=== PATIENT | female | born 1960 | race Caucasian/White ===

== ENCOUNTER → 2016-12-11 16:57 | Outpatient (CLI) | payer MEDICARE ==
[2015-07-07 13:02] VITALS: BMI 31.7
[~2016-12-11 16:57] MED LIST: ABILIFY2 MG PO; ATIVAN1 MG PO; BACTRIM DS TABL1 TAB PO; BACTROBAN NASAL1 GM NS; CLIMARA 0.0.075 MG/P TD; COUMADIN5 MG PO; DESERYL100 MG PO; DILAUDID4 MG PO; DURAGESIC1 PATCH .2 TD; ELIQUIS2.5 MG PO; FLUTICASONE PRO16 GM NS; HYDROCODONE-APA1 TAB PO; LIPITOR20 MG PO; LOVAZA1 G PO; NORVASC5 MG PO; OXYCODONE HCL5 MG PO; PAXIL20 MG PO; PERCOCET 10/3251 TA1 PO; PROTONIX40 MG PO; PROVERA 5 MG TAB5 MG PO; RESTORIL15 MG PO; SYNTHROID75 MCG PO; TYLENOL 325 MG325 MG PO; TYLENOL W/CODEI1 TAB PO; VALIUM10 MG PO; VENTOLIN HFA18 GM INH; ZANAFLEX4 MG PO
== END | disposition home or self-care (01) ==
LOC: D.MAMMO 11:30
DX: Z12.31 Encounter for screening mammogram for malignant neoplasm of breast (principal)

== ENCOUNTER 2016-12-21 05:26 | Day surgery (SDC) | payer MEDICARE ==
[2016-12-20 09:44] LABS: HEMATOCRIT 47.8 % (36.0-48.0); HEMOGLOBIN 16.5 g/dL (12-16); MCH 30.6 pg (26.0-34.0); MCHC 34.5 g/dL (31.0-37.0); MCV 88.7 fL (80.0-100.0); MEAN PLATELET VOLUME 10.5 fL (7.4-10.4); RBC 5.39 10x6/uL (4.00-5.40); RDW 13.9 % (11.5-14.5); WBC 10.3 10x3/uL (4.8-10.8)
[~2016-12-21] VITALS: Ht 176.5 cm; Wt 112.5 kg
[2016-12-21 06:41] VITALS: BP 110/66; Ht 176.5 cm; Wt 112.5 kg
[2016-12-21] MEDS ORDERED: HYDROCODONE-APA1 TAB PO (09:02)
--- NOTE | 2016-12-21 09:58 | NUR ---
OPA IN AIRWAY ON ADMIT
--- NOTE | 2016-12-21 10:40 | NUR ---
TO ROOM O2 SAT 89% ON 3LNC UP TO 4 LNC O2 90% PT WAKE AND TALKING WITH FAMILY OXMIERS ON , DRINKING COFFEE
--- NOTE | 2016-12-21 14:14 | NUR ---
1200 DR ALSTON IN ROOM CHECKING ON PT 02 SAT , 02 SAT UP TO 92 RA
--- NOTE | 2016-12-21 14:15 | NUR ---
1150 IV DC WITH CATHER TIP INTACT
--- NOTE | 2016-12-25 13:10 | OP ---
PATIENT NAME: ZAHIDA MILLARD MEDICAL RECORD: [id number] :62 LOCATION:YING ADMISSION DATE: SURGEON: JOSEFINA ACKERMAN MD DATE OF OPERATION: 12/21/2016 PREOPERATIVE DIAGNOSES: Rotator cuff tear of the right shoulder with impingement syndrome and acromioclavicular arthritis. POSTOPERATIVE DIAGNOSES: Rotator cuff tear of the right shoulder with impingement syndrome and acromioclavicular arthritis. PROCEDURES: 1. Arthroscopic rotator cuff repair. 2. Arthroscopic distal clavicle excision done through a separate incision -- 1 cm. 3. Arthroscopic subacromial decompression, acromioplasty and bursectomy. 4. Arthroscopic biceps tendon release -- tenotomy. OPERATIVE SUMMARY IN DETAIL: After obtaining the appropriate preoperative orthopedic surgery consent as well as anesthetic consultation, evaluation and clearance, the patient was brought to the operating room and placed on the operating table in supine position. After general laryngeal mask was administered, the patient was placed in left lateral decubitus position. All pressure points were well padded to include down leg peroneal pad as well as axillary roll. The patient was held firmly to the operating table using the vacuum pack suction system. Right upper extremity and shoulder were then prepped and draped in a routine sterile fashion. The patient's arm was held in the Arthrex traction boom at 30 degrees of forward flexion, 30 degrees of abduction with 10 pounds of traction laterally. Arthroscopy was established in the glenohumeral joint from a posterior portal. Anterior portal was established in the anterior safe interval. Diagnostic arthroscopy revealed the patient had severe biceps tearing, which was greater than 50% as well as the rotator cuff tear. Biceps tendon was tenotomized. Attention was then turned to the rotator cuff tear. A transarthroscopic rotator cuff tear portal was created and the articular aspect of the supraspinatus tendinous footprint was decorticated. Portions of the torn rotator cuff were taken down. The rotator cuff tear was essentially attritional with a very large area of very thin rotator cuff residual with a complete full thickness tear at the distal aspect of the supraspinatus tendon. This was all cleaned back to good bleeding viable tendon. Attention was then turned to the subacromial space. While on the subacromial space, [place] tissue ablation system was utilized to denude the undersurface of the acromion and release the coracoacromial ligament. A 5-0 barrel jaswant was used to perform acromioplasty at the level of acromioclavicular joint. Through a separate anterior portal, distal clavicle was taken down with the 5-0 barrel jaswant under direct arthroscopic visualization. Having completed this, attention was turned to the rotator cuff. Single apex suture was placed in the apex of the rotator cuff tear tied with a FiberTape. These 2 tails were cut. A second suture was then placed more lateral. This was anchored laterally using a 5.5 SwiveLock from Arthrex. Having completed this, arthroscopy portals were closed in routine interrupted fashion using 4-0 Prolene. Sterile dressings were applied. The patient was awakened, taken to recovery room in stable condition. All final needle and sponge counts were correct. TRANSINT:[id number] Voice Confirmation ID: [id number] DOCUMENT ID: [id number] OPERATIVE REPORT [id number] ZAHIDA MILLARD MD, JOSEFINA HURT at 1310 CC: [id number] DICTATION DATE: 12/21/16 0941 REPAIRER WELDING EQUIPMENT: 12/21/16 1010 [facility] 12/21/[address] [facility] [address] [place] [address]
== END 2016-12-21 12:00 | disposition home or self-care (01) ==
LOC: D.OPS 05:26 → D.PAN 08:00 → D.OPS 12:00
PROVIDERS: Anesthesiology
DX: M75.121 Complete rotator cuff tear or rupture of right shoulder, not specified as traumatic (principal); M75.41 Impingement syndrome of right shoulder; M13.811 Other specified arthritis, right shoulder

== ENCOUNTER → 2017-12-12 16:58 | Outpatient (CLI) | payer MEDICARE ==
[2016-12-21 06:41] VITALS: BMI 36.1
[~2017-12-12 16:58] MED LIST changes: +NORVASC2.5 MG PO; -NORVASC5 MG PO
== END | disposition home or self-care (01) ==
LOC: D.MAMMO 09:15
DX: Z12.31 Encounter for screening mammogram for malignant neoplasm of breast (principal)

== ENCOUNTER → 2017-12-21 14:03 | Outpatient (CLI) | payer MEDICARE ==
[2016-12-21 06:41] VITALS: BMI 36.1
== END | disposition home or self-care (01) ==
LOC: D.MRI 10:30
DX: M25.571 Pain in right ankle and joints of right foot (principal)

== ENCOUNTER 2018-02-27 06:24 | Day surgery (SDC) | payer MEDICARE ==
[~2018-02-27] VITALS: Ht 176.5 cm; Wt 83.9 kg
--- NOTE | ~2018-02-27 | OP ---
PATIENT NAME: ZAHIDA MILLARD MEDICAL RECORD: [id number] :62 LOCATION:D.OPS ADMISSION DATE: SURGEON: MURIEL CAMACHO DPM DATE OF OPERATION: 02/27/2018 PREOPERATIVE DIAGNOSES: 1. Right ankle capsulitis with impingement. 2. ATF rupture, right ankle. POSTOPERATIVE DIAGNOSES: 1. Right ankle capsulitis with impingement. 2. ATF rupture, right ankle. PROCEDURES: 1. Right ankle arthroscopy with extensive debridement of capsular and adhesive tissue. 2. Right anterior talofibular ligament repair utilizing a modified Brostrom and internal brace. ANESTHESIA: Preoperative popliteal block per the anesthesia department as well as intraoperative general anesthesia. HEMOSTASIS: Right thigh tourniquet at 350 mmHg. PREOPERATIVE DETAILS: The patient was taken to the OR and placed on the operating table in a supine position. This was followed by induction of general anesthesia. The right extremity was then prepped and draped in usual aseptic technique followed by exsanguination of extremity and inflation of tourniquet. A 15-blade was used to create 2 small stab incisions over the anterior medial and anterior lateral shoulder of the anterior ankle. The incisions were deepened down bluntly through the subcutaneous tissue and the joint capsule of the ankle was punctured. The camera was introduced medially and the synovial shaver laterally. Upon initial inspection, there was noted to be some mild chondromalacia of the anterior distal tibia as well as some hypertrophied capsule. There was also some scarring of the anterior inferior tibiofibular ligament. These areas were debrided with the synovial shaver. The portals were switched with the camera introduced laterally and the synovial shaver medially. Continued debridement of the hypertrophied capsular tissue as well as synovitis and the impinging capsulitis was performed. Once adequate debridement was performed, the synovial shaver and the camera were removed. PROCEDURE #2: ATF repair, right ankle. The incision on the anterior lateral shoulder of the ankle small stab incision was lengthened distally in a hockey J shape incision. The incision was deepened down through subcutaneous tissue to the joint capsule, which was incised along the anterior border of the fibula. This gave adequate visualization to the lateral shoulder of the ankle joint as well as the lateral talar dome. At this time, inversion stress was performed showing that the CF ligament was intact. Therefore, the ATF ligament was repaired with the internal brace and inserted into the talus as well as the distal fibula. Following the internal brace repair, a modified Brostrom repair was performed over the top utilizing a FiberWire and 2-0 Vicryl to augment. This was then followed by closure of the subcutaneous tissue with 4-0 Rapide and closure of the skin with 4-0 Rapide in a subcuticular technique followed by Dermabond. The anterior medial stab incision over the anterior medial ankle was then closed with 4-0 Rapide in a simple interrupted technique. The incisions OPERATIVE REPORT [id number] FREEMANZAHIDA JOHNSON were then sealed with Dermabond. Adaptic, 4 x 4 and conform were then used to dress the wound followed by application of a modified Michael compression dressing. Tourniquet was deflated. POSTOPERATIVE DETAILS: The patient tolerated the procedure well and left the OR with vital signs stable and vascular status at preoperative levels. The patient was transferred to recovery per anesthesia in stable condition. TRANSINT:[id number] Voice Confirmation ID: [id number] DOCUMENT ID: [id number] MURIEL CAMACHO DPM at 1107 CC: [id number] DICTATION DATE: 02/27/18 0949 BOOT AND SHOE LABORER: 02/27/18 1107 [facility] 02/27/18 [place] [address] [place] [address]
[2018-02-27 07:22] VITALS: BP 128/84; Ht 176.5 cm; Wt 83.9 kg
[2018-02-27 07:24] LABS: HEMATOCRIT 46.9 % (36.0-48.0); HEMOGLOBIN 16.1 g/dL (12-16); MCHC 34.3 g/dL (31.0-37.0); MCV 90.2 fL (80.0-100.0); MEAN PLATELET VOLUME 10.7 fL (7.4-10.4); RBC 5.2 10x6/uL (4.00-5.40); RDW 14.8 % (11.5-14.5); WBC 8.4 10x3/uL (4.8-10.8)
== END 2018-02-27 11:20 | disposition home or self-care (01) ==
LOC: D.OPS 06:24 → D.PAN 07:00 → D.OPS 07:55
PROVIDERS: Anesthesiology
DX: S93.491A Sprain of other ligament of right ankle, initial encounter (principal); M77.51 Other enthesopathy of right foot and ankle; F17.200 Nicotine dependence, unspecified, uncomplicated; I10 Essential (primary) hypertension; E03.9 Hypothyroidism, unspecified; K21.9 Gastro-esophageal reflux disease without esophagitis; G47.30 Sleep apnea, unspecified; Z01.812 Encounter for preprocedural laboratory examination

== ENCOUNTER → 2018-06-25 12:37 | Outpatient (CLI) | payer MEDICARE, MEDICAID ==
[2018-02-27 07:22] VITALS: BMI 26.9
== END | disposition home or self-care (01) ==
LOC: D.LABREF 12:37
DX: M25.561 Pain in right knee (principal); Z11.8 Encounter for screening for other infectious and parasitic diseases

== ENCOUNTER 2018-07-17 10:00 | Inpatient (IN) | payer MEDICARE, MEDICAID ==
[~2018-07-17] VITALS: Ht 177.8 cm; Wt 111.8 kg
--- NOTE | ~2018-07-17 | MORECARE ---
CASE MANAGEMENT DISCHARGE SUMMARY PATIENT: ZAHIDA MILLARD UNIT: [id number] ADM DATE: 07/22/18 AGE: 57 : 62 SEX: F ROOM/BED: D.2211 AUTHOR: BASIM KEBEDE PHYSICIAN: REFERRING PHYSICIAN: JOSEFINA ACKERMAN MD DATE OF SERVICE: 07/29/18 Discharge Plan Patient Name: ZAHIDA MILLARD Facility: [facility]:[place] : 1960 Planned Disposition: Home with Home Health Anticipated Discharge Date: Discharge Date: 07/25/2018 Expected LOS: 0 Initial Reviewer: [email or web address] Initial Review Date: 07/22/2018 Generated: 07/29/18 11:12 am Comments DCP- Discharge Planning Updated by [email or web address]: Molly Vargas on 07/25/18 9:[address] Patient Name: ZAHIDA MILLARD Encounter No: [id number] : 1960 Primary Insurance: [employer] MEDICARE ADV Anticipated DC Date: Planned Disposition: Home with Home Health External Planned Provider: : DCP follow-up note: Patient and family in agreement with discharge plan. IMM served and explained. Called Susie at [employer] to let her know of discharge she will get DME out to patient. Notified Felicia at [employer] notified of discharge. No changes to plan. Case management will follow and assist as needed. Molly Vargas DCP- Discharge Planning Updated by [email or web address]: Molly Vargas on 07/23/18 12:[address] Patient Name: ZAHIDA MILLARD Admission Status: Elective Accout number: [id number] Admission Date: 07-22-2018 : 1960 Admission Diagnosis: Attending: JOSEFINA ACKERMAN Current LOS: 1 Anticipated DC Date: Planned Disposition: Home with Home Health Primary Insurance: [employer] MEDICARE ADV Discharge Planning Comments: CM met with patient to assess discharge planning needs. Patient lives independently with a Sd Vences, who will be the one to take her home at discharge. She stated that there are 5 steps in her home. She has a bed side commode & walker at home. She will need a home health and a CPM at discharge. RONNIE with [employer]. I called spoke with Ritu with [employer]. They will put her on their schedule. CM will continue to follow and assist with DC planning Wage Hand: Molly Vargas DCPIA - Discharge Planning Initial Assessment Updated by [email or web address]: Molly Vargas on 07/23/18 1:32 pm * Is the patient Alert and Oriented? Yes * How many steps to enter\exit or inside your home? * PCP MONICA * Pharmacy BILL'S * Preadmission Environment Home with Family * ADLs Independent * Equipment Bedside Commode Walker * List name and contact numbers for known caregivers / representatives who currently or will assist patient after discharge: DIANA CRISTINA [phone] * Verbal permission to speak to the caregivers and representatives has been obtained from the patient. N/A * Community resources currently utilized None * Additional services required to return to the preadmission environment? Yes * Can the patient safely return to the preadmission environment? Yes * Has this patient been hospitalized within the prior 30 days at any hospital? No Coverage Notice Reviewer: [id number] - Molly Vargas Notice Issued Date-Time: 07/25/2018 10:24 Notice Type: IM Discharge Notice Notice Delivered To: Patient Relationship to Patient: Skill Labor Name: Delivery Method: HAND - Hand Delivered Flavia Days: Prior Verbal Notification: Recipient Understood Notice: Yes Recipient Signature: Yes Med Rec Note Co-signed by Attending: Coverage Notice Comment: Last DP export: 07/25/18 10:01 Patient Name: ZAHIDA MILLARD Page 42015 at 1013 All edits/amendments must be made on the electronic document DICTATION DATE: 07/29/18 1012 GROUNDS MAINTENANCE MANAGER: LANI 07/29/18 1012 RPT#: [id number] DC DATE:07/25/18 STATUS: DIS IN [facility] [address] [place] [address] END OF REPORT
--- NOTE | ~2018-07-17 | MORECARE ---
CASE MANAGEMENT DISCHARGE SUMMARY PATIENT: ZAHIDA MILLARD UNIT: [id number] ADM DATE: 07/22/18 AGE: 57 : 62 SEX: F ROOM/BED: D.2211 AUTHOR: BASIM KEBEDE PHYSICIAN: REFERRING PHYSICIAN: JOSEFINA ACKERMAN MD DATE OF SERVICE: 07/25/18 Discharge Plan Patient Name: ZAHIDA MILLARD Facility: [facility]:[place] : 1960 Planned Disposition: Home with Home Health Anticipated Discharge Date: Discharge Date: Expected LOS: Initial Reviewer: [email or web address] Initial Review Date: 07/22/2018 Generated: 07/25/18 11:41 am Comments DCP- Discharge Planning Updated by [email or web address]: Molly Vargas on 07/25/18 9:[address] Patient Name: ZAHIDA MILLARD Encounter No: [id number] : 1960 Primary Insurance: [employer] MEDICARE ADV Anticipated DC Date: Planned Disposition: Home with Home Health External Planned Provider: : DCP follow-up note: Patient and family in agreement with discharge plan. IMM served and explained. Called Susie at [employer] to let her know of discharge she will get DME out to patient. Notified Felicia curtis [employer] notified of discharge. No changes to plan. Case management will follow and assist as needed. Molly Vargas DCP- Discharge Planning Updated by [email or web address]: Molly Vargas on 07/23/18 12:[address] Patient Name: ZAHIDA MILLARD Admission Status: Elective Accout number: [id number] Admission Date: 07-22-2018 : 1960 Admission Diagnosis: Attending: JOSEFINA ACKERMAN Current LOS: 1 Anticipated DC Date: Planned Disposition: Home with Home Health Primary Insurance: [employer] MEDICARE ADV Discharge Planning Comments: CM met with patient to assess discharge planning needs. Patient lives independently with a Sd Vences, who will be the one to take her home at discharge. She stated that there are 5 steps in her home. She has a bed side commode & walker at home. She will need a home health and a CPM at discharge. RONNIE with [employer]. I called spoke with Ritu with [employer]. They will put her on their schedule. CM will continue to follow and assist with DC planning Maintenance Machine Repairer: Molly Vargas DCPIA - Discharge Planning Initial Assessment Updated by [email or web address]: Molly Vargas on 07/23/18 1:32 pm * Is the patient Alert and Oriented? Yes * How many steps to enter\exit or inside your home? * PCP MONICA * Pharmacy BILL'S * Preadmission Environment Home with Family * ADLs Independent * Equipment Bedside Commode Walker * List name and contact numbers for known caregivers / representatives who currently or will assist patient after discharge: DIANA CRISTINA [phone] * Verbal permission to speak to the caregivers and representatives has been obtained from the patient. N/A * Community resources currently utilized None * Additional services required to return to the preadmission environment? Yes * Can the patient safely return to the preadmission environment? Yes * Has this patient been hospitalized within the prior 30 days at any hospital? No Coverage Notice Reviewer: [id number] - Molly Vargas Notice Issued Date-Time: 07/25/2018 10:24 Notice Type: IM Discharge Notice Notice Delivered To: Patient Relationship to Patient: Sofa Back Upholsterer Name: Delivery Method: HAND - Hand Delivered Flavia Days: Prior Verbal Notification: Recipient Understood Notice: Yes Recipient Signature: Yes Med Rec Note Co-signed by Attending: Coverage Notice Comment: Last DP export: 07/23/18 12:43 Patient Name: ZAHIDA MILLARD Page [phone] at 1041 All edits/amendments must be made on the electronic document DICTATION DATE: 07/25/18 1040 RETAIL LOSS PREVENTION SPECIALIST: LANI 07/25/18 1040 RPT#: [id number] DC DATE: STATUS: ADM IN [facility] [address] [place] [address] END OF REPORT
--- NOTE | ~2018-07-17 | MORECARE ---
CASE MANAGEMENT DISCHARGE SUMMARY PATIENT: ZAHIDA MILLARD UNIT: [id number] ADM DATE: 07/22/18 AGE: 57 : 62 SEX: F ROOM/BED: D.2211 AUTHOR: BASIM KEBEDE PHYSICIAN: REFERRING PHYSICIAN: JOSEFINA ACKERMAN MD DATE OF SERVICE: 07/23/18 Discharge Plan Patient Name: ZAHIDA MILLARD Facility: [facility]:[place] : 1960 Planned Disposition: Home with Home Health Anticipated Discharge Date: Discharge Date: Expected LOS: Initial Reviewer: [email or web address] Initial Review Date: 07/22/2018 Generated: 07/23/18 2:34 pm DCPIA - Discharge Planning Initial Assessment Updated by [email or web address]: Molly Vargas on 07/23/18 1:32 pm * Is the patient Alert and Oriented? Yes * How many steps to enter\exit or inside your home? * PCP MONICA * Pharmacy BILL'S * Preadmission Environment Home with Family * ADLs Independent * Equipment Bedside Commode Walker * List name and contact numbers for known caregivers / representatives who currently or will assist patient after discharge: DIANA CRISTINA [phone] * Verbal permission to speak to the caregivers and representatives has been obtained from the patient. N/A * Community resources currently utilized None * Additional services required to return to the preadmission environment? Yes * Can the patient safely return to the preadmission environment? Yes * Has this patient been hospitalized within the prior 30 days at any hospital? No Patient Name: ZAHIDA MILLARD Page 13737 at 1334 All edits/amendments must be made on the electronic document DICTATION DATE: 07/23/18 1334 RECORD PRESS TENDER: LANI 07/23/18 1334 RPT#: [id number] DC DATE: STATUS: ADM IN [facility] [address] [place] [address] END OF REPORT
--- NOTE | ~2018-07-17 | MORECARE ---
CASE MANAGEMENT DISCHARGE SUMMARY PATIENT: ZAHIDA MILLARD UNIT: [id number] ADM DATE: 07/22/18 AGE: 57 : 62 SEX: F ROOM/BED: D.2211 AUTHOR: BASIM KEBEDE PHYSICIAN: REFERRING PHYSICIAN: JOSEFINA ACKERMAN MD DATE OF SERVICE: 07/25/18 Discharge Plan Patient Name: ZAHIDA MILLARD Facility: [facility]:[place] : 1960 Planned Disposition: Home with Home Health Anticipated Discharge Date: Discharge Date: Expected LOS: Initial Reviewer: [email or web address] Initial Review Date: 07/22/2018 Generated: 07/25/18 12:01 pm Comments DCP- Discharge Planning Updated by [email or web address]: Molly Vargas on 07/25/18 9:[address] Patient Name: ZAHIDA MILLARD Encounter No: [id number] : 1960 Primary Insurance: [employer] MEDICARE ADV Anticipated DC Date: Planned Disposition: Home with Home Health External Planned Provider: : DCP follow-up note: Patient and family in agreement with discharge plan. IMM served and explained. Called Susie at [employer] to let her know of discharge she will get DME out to patient. Notified Felicia curtis [employer] notified of discharge. No changes to plan. Case management will follow and assist as needed. Molly Vargas DCP- Discharge Planning Updated by [email or web address]: Molly Vargas on 07/23/18 12:[address] Patient Name: ZAHIDA MILLARD Admission Status: Elective Accout number: [id number] Admission Date: 07-22-2018 : 1960 Admission Diagnosis: Attending: JOSEFINA ACKERMAN Current LOS: 1 Anticipated DC Date: Planned Disposition: Home with Home Health Primary Insurance: [employer] MEDICARE ADV Discharge Planning Comments: CM met with patient to assess discharge planning needs. Patient lives independently with a Sd Vences, who will be the one to take her home at discharge. She stated that there are 5 steps in her home. She has a bed side commode & walker at home. She will need a home health and a CPM at discharge. RONNIE with [employer]. I called spoke with Ritu with [employer]. They will put her on their schedule. CM will continue to follow and assist with DC planning Lapidary Apprentice: Molly Vargas DCPIA - Discharge Planning Initial Assessment Updated by [email or web address]: Molly Vargas on 07/23/18 1:32 pm * Is the patient Alert and Oriented? Yes * How many steps to enter\exit or inside your home? * PCP MONICA * Pharmacy BILL'S * Preadmission Environment Home with Family * ADLs Independent * Equipment Bedside Commode Walker * List name and contact numbers for known caregivers / representatives who currently or will assist patient after discharge: DIANA CRISTINA [phone] * Verbal permission to speak to the caregivers and representatives has been obtained from the patient. N/A * Community resources currently utilized None * Additional services required to return to the preadmission environment? Yes * Can the patient safely return to the preadmission environment? Yes * Has this patient been hospitalized within the prior 30 days at any hospital? No External Providers External Provider: [facility] Next Contact Date: Service Request Date: Service Type: Resolution: Reviewer: Comments: Coverage Notice Reviewer: [id number] - Molly Vargas Notice Issued Date-Time: 07/25/2018 10:24 Notice Type: IM Discharge Notice Notice Delivered To: Patient Relationship to Patient: Printer Machine Name: Delivery Method: HAND - Hand Delivered Flavia Days: Prior Verbal Notification: Recipient Understood Notice: Yes Recipient Signature: Yes Med Rec Note Co-signed by Attending: Coverage Notice Comment: Last DP export: 07/25/18 9:41 Patient Name: ZAHIDA MILLARD Page 04123 at 1101 All edits/amendments must be made on the electronic document DICTATION DATE: 07/25/18 1100 SOLUTION MANAGER: LANI 07/25/18 1100 RPT#: [id number] DC DATE: STATUS: ADM IN [facility] [address] [place] [address] END OF REPORT
--- NOTE | ~2018-07-17 | OP ---
PATIENT NAME: ZAHIDA MILLARD MEDICAL RECORD: [id number] :[birth year] LOCATION:D.MS Ramos2211 ADMISSION DATE:07/22/18 SURGEON: JOSEFINA ACKERMAN MD DATE OF OPERATION: 07/22/2018 PREOPERATIVE DIAGNOSIS: Painful total knee arthroplasty. POSTOPERATIVE DIAGNOSIS: Painful total knee arthroplasty. PROCEDURE: Revision total knee arthroplasty, polyethylene only. SURGEON: Josefina Ackerman MD ANESTHESIA: General. INTRAOPERATIVE COMPLICATIONS: None. SUMMARY OF PATHOLOGIC FINDINGS: Essentially none. This is a right knee. The patient's right knee was loose in flexion and extension as predicted after aggressive rehabilitation and use. A 9-mm polyethylene was changed for an 11-mm polyethylene. OPERATIVE SUMMARY IN DETAIL: After obtaining the appropriate preoperative orthopedic surgery consent as well as anesthetic consultation, evaluation and clearance, the patient was brought to the operating room and placed on the operating table in supine position. After general laryngeal mask airway was administered, tourniquet was placed on the proximal aspect of the right lower extremity. Right lower extremity was then prepped and draped in routine sterile fashion. The leg was elevated and exsanguinated, tourniquet inflated to 350 mmHg. Routine midline incision was then taken down again. Gentle dissection was carried out about for paramedian arthrotomy. Patella was then slightly moved laterally. The previous polyethylene was taken out and copious lavage irrigation was then followed by trials with first a 9, 11 and 13. The 13 was clearly too tight. The 9 was clearly too loose. The 11 seemed to be stable in both flexion and extension as well as mid flexion. Having completed the trial, the 11-mm polyethylene was nicely put into place. Again, the knee was ranged and found to be stable in all planes. Paramedian arthrotomy was closed with #2 Ethibond. This was followed by #1 Vicryl, 2-0 Vicryl and skin xavier. Sterile dressings were applied. The patient was awakened, taken to recovery room in stable condition. All final needle and sponge counts were correct. TRANSINT:[id number] Voice Confirmation ID: [id number] DOCUMENT ID: [id number] JOSEFINA ACKERMAN MD at 0844 CC: [id number] DICTATION DATE: 07/26/18 1321 TRACE EVIDENCE TECHNICIAN: 07/26/18 1330 DIS IN 07/25/18 [facility] [address] [place] [address]
--- NOTE | ~2018-07-17 | MORECARE ---
CASE MANAGEMENT DISCHARGE SUMMARY PATIENT: ZAHIDA MILLARD UNIT: [id number] ADM DATE: 07/22/18 AGE: 57 : 62 SEX: F ROOM/BED: D.2211 AUTHOR: BASIM KEBEDE PHYSICIAN: REFERRING PHYSICIAN: JOSEFINA ACKERMAN MD DATE OF SERVICE: 07/23/18 Discharge Plan Patient Name: ZAHIDA MILLARD Facility: [facility]:[place] : 1960 Planned Disposition: Home with Home Health Anticipated Discharge Date: Discharge Date: Expected LOS: Initial Reviewer: [email or web address] Initial Review Date: 07/22/2018 Generated: 07/23/18 2:43 pm Comments DCP- Discharge Planning Updated by [email or web address]: Molly Vargas on 07/23/18 12:[address] Patient Name: ZAHIDA MILLARD Admission Status: Elective Accout number: [id number] Admission Date: 07-22-2018 : 1960 Admission Diagnosis: Attending: JOSEFINA ACKERMAN Current LOS: 1 Anticipated DC Date: Planned Disposition: Home with Home Health Primary Insurance: WELL[employer] MEDICARE ADV Discharge Planning Comments: CM met with patient to assess discharge planning needs. Patient lives independently with a Sd Vences, who will be the one to take her home at discharge. She stated that there are 5 steps in her home. She has a bed side commode & walker at home. She will need a home health and a CPM at discharge. RONNIE with [facility]. I called spoke with Ritu with [facility]. They will put her on their schedule. CM will continue to follow and assist with DC planning Global Marketing Manager: Molly Vargas DCPIA - Discharge Planning Initial Assessment Updated by [email or web address]: Molly Vargas on 07/23/18 1:32 pm * Is the patient Alert and Oriented? Yes * How many steps to enter\exit or inside your home? * PCP MONICA * Pharmacy BILL'S * Preadmission Environment Home with Family * ADLs Independent * Equipment Bedside Commode Walker * List name and contact numbers for known caregivers / representatives who currently or will assist patient after discharge: DIANA CRISTINA [phone] * Verbal permission to speak to the caregivers and representatives has been obtained from the patient. N/A * Community resources currently utilized None * Additional services required to return to the preadmission environment? Yes * Can the patient safely return to the preadmission environment? Yes * Has this patient been hospitalized within the prior 30 days at any hospital? No External Providers External Provider: [employer] [facility]ENTERHealthPlan [facility] [place] Next Contact Date: Service Request Date: Service Type: Resolution: Reviewer: Comments: Last DP export: 07/23/18 12:34 Patient Name: ZAHIDA MILLARD Page [id number] at 1343 All edits/amendments must be made on the electronic document DICTATION DATE: 07/23/18 1343 LOZENGE MAKER HELPER: LANI 07/23/18 1343 RPT#: [id number] DC DATE: STATUS: ADM IN [facility] [address] [place] [address] END OF REPORT
[~2018-07-17 10:00] MED LIST changes: +ABILIFY10 MG PO; -ABILIFY2 MG PO; +FLUTICASONE PRO16 GM NASAL; +GABAPENTIN100 MG PO; +NAPROSYN500 MG PO; +OS-CAL500 MG PO; -PAXIL20 MG PO; +PAXIL40 MG PO; +VITAMIN D5000 UNIT PO; +VOLTAREN100 GM TOPICAL
[2018-07-17 11:40] LABS: APPEARANCE CLEAR (CLEAR); BASOPHILS 0.2 % (0-2); BILIRUBIN NEGATIVE (NEGATIVE); COLOR YELLOW (YELLOW); EOSINOPHILS 3.4 % (0-7); GLUCOSE NEGATIVE (NEGATIVE); HEMATOCRIT 43.4 % (36.0-48.0); IMMATURE GRANULOCYTES 0.1 % (0-5); KETONE NEGATIVE (NEGATIVE); MCH 31.1 pg (26.0-34.0); MCHC 34.6 g/dL (31.0-37.0); MEAN PLATELET VOLUME 10.8 fL (7.4-10.4); MONOCYTES 5.3 % (2-11); NITRITE NEGATIVE (NEGATIVE); PLATELET COUNT 303 10x3/uL (130-400); PROTEIN NEGATIVE (NEGATIVE); RBC 4.82 10x6/uL (4.00-5.40); RDW 13.4 % (11.5-14.5); SPECIFIC GRAVITY 1.015 (1.005-1.020); UROBILINOGEN NORMAL (NORMAL)
[2018-07-17 11:58] LABS: ANION GAP 16.7 mmol/L (8-16); APTT 26.6 SECONDS (22.8-39.4); CALCIUM 9.7 mg/dL (8.5-10.1); CARBON DIOXIDE 27.5 mmol/L (21.0-32.0); CREATININE - SERUM 0.9 mg/dL (0.6-1.3); INR 0.94 (0.85-1.17); POTASSIUM - SERUM 3.2 mmol/L (3.5-5.1); PROTIME 12.2 SECONDS (11.6-15.0)
[2018-07-22 10:53] VITALS: BP 127/75; BMI 35.5
[2018-07-22 15:43] VITALS: BP 127/90
[2018-07-22 16:29] VITALS: BP 127/90; Ht 177.8 cm; Wt 111.8 kg
[2018-07-22 21:25] VITALS: BP 131/82
[2018-07-23 04:36] VITALS: BP 140/79
[2018-07-23 05:06] LABS: HEMATOCRIT 46.6 % (36.0-48.0); HEMOGLOBIN 15.5 g/dL (12-16); MCH 31.1 pg (26.0-34.0); MCHC 33.3 g/dL (31.0-37.0); MCV 93.6 fL (80.0-100.0); MEAN PLATELET VOLUME 10.8 fL (7.4-10.4); RBC 4.98 10x6/uL (4.00-5.40); RDW 13.6 % (11.5-14.5)
[2018-07-23 08:26] VITALS: BP 111/70
[2018-07-23 12:00] VITALS: BP 106/77
[2018-07-23 16:09] VITALS: BP 108/66
[2018-07-23 21:21] VITALS: BP 113/80
[2018-07-24 05:10] VITALS: BP 121/85
[2018-07-24 05:43] LABS: BASOPHILS 0.1 % (0-2); EOSINOPHILS 1.9 % (0-7); HEMATOCRIT 44.2 % (36.0-48.0); HEMOGLOBIN 14.3 g/dL (12-16); IMMATURE GRANULOCYTES 0.3 % (0-5); LYMPHOCYTES 26.8 % (15-50); MCHC 32.4 g/dL (31.0-37.0); MEAN PLATELET VOLUME 11.2 fL (7.4-10.4); MONOCYTES 7.2 % (2-11); NEUTROPHILS 63.7 % (40-80); PLATELET COUNT 275 10x3/uL (130-400); RBC 4.62 10x6/uL (4.00-5.40); RDW 13.9 % (11.5-14.5); WBC 13.6 10x3/uL (4.8-10.8)
[2018-07-24 06:06] LABS: CALC OSMOLALITY 290 mosm/kg (275-300); CARBON DIOXIDE 36.8 mmol/L (21.0-32.0); CHLORIDE - SERUM 103 mmol/L (98-107); CREATININE - SERUM 0.7 mg/dL (0.6-1.3); GLUCOSE 144 mg/dL (74-106); MAGNESIUM - SERUM 1.9 mg/dL (1.8-2.4); PHOSPHOROUS 2.4 mg/dL (2.5-4.9); POTASSIUM - SERUM 3.4 mmol/L (3.5-5.1); SODIUM 145 mmol/L (136-145); UREA NITROGEN 9 mg/dL (7-18); eGFR NON AFRICAN AMERICAN > 90 mL/min (90-120)
[2018-07-24 06:22] LABS: MCV 95.7 fL (80.0-100.0)
[2018-07-24 08:30] VITALS: BP 147/78
[2018-07-24 12:45] VITALS: BP 153/87
[2018-07-24 20:49] VITALS: BP 127/80
[2018-07-25 04:35] VITALS: BP 139/78
[2018-07-25 05:58] LABS: BASOPHILS 0.2 % (0-2); EOSINOPHILS 2.6 % (0-7); HEMATOCRIT 46.3 % (36.0-48.0); IMMATURE GRANULOCYTES 0.3 % (0-5); LYMPHOCYTES 25.4 % (15-50); MCH 30.7 pg (26.0-34.0); MCHC 32.4 g/dL (31.0-37.0); MCV 94.9 fL (80.0-100.0); MEAN PLATELET VOLUME 11.1 fL (7.4-10.4); NEUTROPHILS 63.5 % (40-80); PLATELET COUNT 249 10x3/uL (130-400); RBC 4.88 10x6/uL (4.00-5.40); RDW 13.7 % (11.5-14.5); WBC 11.3 10x3/uL (4.8-10.8)
[2018-07-25 06:31] LABS: CALC OSMOLALITY 278 mosm/kg (275-300); CALCIUM 9.3 mg/dL (8.5-10.1); CARBON DIOXIDE 32.9 mmol/L (21.0-32.0); CHLORIDE - SERUM 99 mmol/L (98-107); CREATININE - SERUM 0.6 mg/dL (0.6-1.3); GLUCOSE 137 mg/dL (74-106); POTASSIUM - SERUM 3.9 mmol/L (3.5-5.1); SODIUM 140 mmol/L (136-145); UREA NITROGEN 7 mg/dL (7-18); eGFR NON AFRICAN AMERICAN > 90 mL/min (90-120)
[2018-07-25] MEDS ORDERED: Levaquin PO (08:09)
[2018-07-25] MEDS ORDERED: PERCOCET 7.5/321 TAB PO (08:10)
[2018-07-25] MEDS ORDERED: ELIQUIS2.5 MG PO (08:10)
[2018-07-25 08:49] VITALS: BP 100/68
[2018-07-25] MEDS ORDERED: SINGULAIR10 MG PO (10:58)
[2018-07-25] MEDS ORDERED: BENZONATATE200 MG PO (10:59)
[2018-07-25] MEDS ORDERED: COMBIVENT RESPIM4 GM INH (11:04)
[2018-07-25] MEDS ORDERED: SYMBICORT 16010.2 GM INH (11:05)
== END 2018-07-25 13:55 | disposition home health service (06) | DRG 488 ==
LOC: D.SDCHOLD 07-22 09:20 → D.MS 07-22 09:20 → D.SDCHOLD 07-22 10:00 → D.MS 07-22 15:41
PROVIDERS: Internal Medicine Pulmonary Disease; Orthopaedic Surgery
PROC: 0SUV09Z Supplement Right Knee Joint, Tibial Surface with Liner, Open Approach (ICD-10-PCS; 2018-07-22)
PROC: 0SPC09Z Removal of Liner from Right Knee Joint, Open Approach (ICD-10-PCS; principal; 2018-07-22 11:00)
DX: T84.84XA Pain due to internal orthopedic prosthetic devices, implants and grafts, initial encounter (principal); J95.821 Acute postprocedural respiratory failure; J69.0 Pneumonitis due to inhalation of food and vomit; J44.1 Chronic obstructive pulmonary disease with (acute) exacerbation; Z96.651 Presence of right artificial knee joint; I10 Essential (primary) hypertension; G89.29 Other chronic pain; K21.9 Gastro-esophageal reflux disease without esophagitis; E87.6 Hypokalemia; F41.8 Other specified anxiety disorders; F17.200 Nicotine dependence, unspecified, uncomplicated; E55.9 Vitamin D deficiency, unspecified

== ENCOUNTER → 2018-11-01 08:16 | Outpatient (CLI) | payer MEDICARE, MEDICAID ==
[2018-07-22 16:29] VITALS: BMI 35.3
[~2018-11-01 08:16] MED LIST changes: +BENZONATATE200 MG PO; +COMBIVENT RESPIM4 GM INH; +Levaquin PO; +PERCOCET 7.5/321 TAB PO; +SINGULAIR10 MG PO; +SYMBICORT 16010.2 GM INH
== END | disposition home or self-care (01) ==
LOC: D.RT 08:00
DX: J44.9 Chronic obstructive pulmonary disease, unspecified (principal); J98.11 Atelectasis

== ENCOUNTER → 2018-12-04 12:24 | Outpatient (CLI) | payer MEDICARE, MEDICAID ==
[2018-07-22 16:29] VITALS: BMI 35.3
== END | disposition home or self-care (01) ==
LOC: D.RAD 12:24
PROVIDERS: ATTEND Internal Medicine Pulmonary Disease
DX: T17.928A Food in respiratory tract, part unspecified causing other injury, initial encounter (principal)

== ENCOUNTER → 2019-03-11 09:37 | Outpatient (CLI) | payer MEDICARE, MEDICAID ==
[2018-07-22 16:29] VITALS: BMI 35.3
== END | disposition home or self-care (01) ==
LOC: D.NM 09:37
PROVIDERS: ATTEND Orthopaedic Surgery
DX: Z96.651 Presence of right artificial knee joint (principal)

== ENCOUNTER → 2019-03-24 16:50 | Outpatient (CLI) | payer MEDICARE, MEDICAID ==
[2018-07-22 16:29] VITALS: BMI 35.3
[2019-03-24 16:58] LABS: BASOPHILS 0.3 % (0-2); EOSINOPHILS 4.3 % (0-7); HEMOGLOBIN 14.6 g/dL (12-16); IMMATURE GRANULOCYTES 0.2 % (0-5); LYMPHOCYTES 40.2 % (15-50); MCH 31.3 pg (26.0-34.0); MCHC 35.6 g/dL (31.0-37.0); MEAN PLATELET VOLUME 10.4 fL (7.4-10.4); MONOCYTES 6.1 % (2-11); NEUTROPHILS 48.9 % (40-80); PLATELET COUNT 311 10x3/uL (130-400); RBC 4.66 10x6/uL (4.00-5.40); RDW 13.9 % (11.5-14.5); WBC 9.9 10x3/uL (4.8-10.8)
[2019-03-24 18:00] LABS: ERYTHROCYTE SEDIMENTATION RATE 12 mm/hr (0-30)
== END | disposition home or self-care (01) ==
LOC: D.LABREF 16:50
PROVIDERS: ATTEND Orthopaedic Surgery
DX: M25.561 Pain in right knee (principal)

== ENCOUNTER 2019-03-31 08:00 | Outpatient (CLI) | payer MEDICARE, MEDICAID ==
[2018-07-22 16:29] VITALS: BMI 35.3
== END 2019-03-31 23:59 | disposition home or self-care (01) ==
LOC: D.MAMMO 08:00
PROVIDERS: ATTEND Family Medicine
DX: Z12.31 Encounter for screening mammogram for malignant neoplasm of breast (principal)

== ENCOUNTER → 2019-04-04 09:52 | Outpatient (CLI) | payer MEDICARE, MEDICAID ==
[2018-07-22 16:29] VITALS: BMI 35.3
--- NOTE | ~2019-04-04 | HEMODYNAMI ---
PATIENT:ZAHIDA MILLARD MEDICAL RECORD: [id number] : 62 LOCATION:[facility] ADMISSION DATE: 04/04/19 Generatedon:04/04/201911:20 Patient name: ZAHIDA MILLARD Patient #: [id number] SSN: D OB: 1960 Date of study: 04/04/2019 Page: Of Hemodynamic Procedure Report Patient Data Patient Demographics Procedure consent was obtained First Name: ZAHIDA Gender: Female Last Name: FREEMAN : 1960 Middle Initial: ALEX Age: 58 year(s) Patient #: [id number] Race: Unknown Additional ID: [id number] Contact details Address: [place] [place] [address] State: [place] City: [place] Zip code: [address] Past Medical History Allergies Allergen Reaction Date Comments Reported Other allergy 04/04/2019 SULFA, BACTRIM, ADHESIVE TAPE Admission Admission Data Admission Date: 04/04/2019 Admission Time: 9:52 Procedure Procedure Types Cath Procedure Peripheral Cath Diagnostic Procedure Miscellaneous Aspiration/Injection (Joint) Procedure Description Procedure Date Procedure Date: 04/04/2019 Procedure Start Time: 11:07 Procedure Staff Name Function Neville Huynh MD Performing Physician AFSHIN GONSALEZ RT Monitor Procedure Data Cath Procedure Fluoroscopy Diagnostic fluoroscopy Total fluoroscopy Time: 0.1 time: 0.1 min min Diagnostic fluoroscopy Total fluoroscopy dose: 2 dose: 2 mGy mGy Hemodynamics Rest Pre Cath Intra NCS Post Cath Procedure Log Time Note 10:48:47 AFSHIN GONSALEZ RT (R) sent for patient. Start room use. 10:48:49 Time tracking: Regular hours (M-F 7:00 - 5:00) 10:49:04 Patient received from Outpatients to IR Alert and oriented. Tansferred to table in Supine position. 10:49:07 Correct patient and procedure confirmed by team. 10:49:10 SAFE-T PLUS MYELOGRAM TRAY opened to sterile field. 10:49:11 SPINAL NEEDLE 20GX3.5 IN ([id number]) opened to sterile field. 10:49:14 Signed procedure consent form obtained from patient. 10:50:18 - 10:50:44 Patient allergic to Other allergySULFA, BACTRIM, ADHESIVE TAPE 10:50:54 Pre-op teaching completed and patient verbalized understanding. 10:51:10 Is patient on blood thinner?No 10:51:19 Right Knee was prepped with betadine and draped in sterile fashion. 11:06:49 Physician arrived 11:06:50 --------ALL STOP TIME OUT------ 11:07:02 Right Knee site verified by team. 11:07:24 Procedure started. 11:07:24 Full Disclosure recording started 11:07:42 Local anesthetic to Right Knee with Lidocaine 1% by Neville Huynh MD.INITIAL ACCESS ONLY 11:13:10 Procedure ended.(Physican Out) 11:18:23 Fluoroscopy time 00.10 minutes. 11:18:27 Fluoroscopy dose: 2 mGy 11:18:27 Flurop Dose total: 2 11:18:54 Post Right Knee: stable, patient sent home. 11:19:21 End room use (Document Last) Device Usage Item Name Manufacture Quantity Catalog Hospital Part Current Minimal Lot# / Number Charge Number Stock Stock Serial# Code SAFE-T Care[employer] 1 [id number] PLUS MYELOGRAM TRAY SPINAL B. Menezes 1 [id number] 1 NEEDLE 20GX3.5 IN ([id number]) Signature Audit [place] Stage Time Signature Unsigned Intra-Procedure 04/04/2019 AFSHIN GONSALEZ RT 11:20:06 AM (R) Signatures Monitor : AFSHIN GONSALEZ RT Signature : Date : Time : [facility] [address] [place] [address]
[2019-04-04 14:44] LABS: EOS BF 2 %; MACROPHAGES BF 20 %; MESOTHELIALS BF 5 %; NEUT - BF 53 %
== END | disposition home or self-care (01) ==
LOC: D.RAD 09:52
PROVIDERS: Specialist; ATTEND Clinical Nurse Specialist Family Health
DX: M25.561 Pain in right knee (principal)

== ENCOUNTER → 2019-04-16 17:11 | Outpatient (CLI) | payer MEDICARE, MEDICAID ==
[2018-07-22 16:29] VITALS: BMI 35.3
== END | disposition home or self-care (01) ==
LOC: D.LABREF 17:11
PROVIDERS: ATTEND Orthopaedic Surgery
DX: G89.18 Other acute postprocedural pain (principal)

== ENCOUNTER 2019-04-24 14:28 | Inpatient (IN) | payer MEDICARE, MEDICAID ==
[~2019-04-24] VITALS: Ht 177.8 cm; Wt 105.5 kg
[~2019-04-24 14:28] MED LIST changes: +SYNTHROID100 MCG PO; -SYNTHROID75 MCG PO
[2019-05-06] MEDS ORDERED: SINGULAIR10 MG (14:44)
[2019-05-07] MEDS ORDERED: TYLENOL W/CODEI1 TAB PO (11:01)
[2019-05-07 12:03] LABS: BASOPHILS 0.3 % (0-2); HEMOGLOBIN 14.8 g/dL (12-16); IMMATURE GRANULOCYTES 0.1 % (0-5); LYMPHOCYTES 39.7 % (15-50); MCHC 34.4 g/dL (31.0-37.0); MEAN PLATELET VOLUME 10.4 fL (7.4-10.4); MONOCYTES 6.1 % (2-11); NEUTROPHILS 49.8 % (40-80); PLATELET COUNT 319 10x3/uL (130-400); RBC 4.78 10x6/uL (4.00-5.40); RDW 13.8 % (11.5-14.5); WBC 8.7 10x3/uL (4.8-10.8)
[2019-05-07 12:07] LABS: APPEARANCE CLEAR (CLEAR); BILIRUBIN NEGATIVE (NEGATIVE); COLOR YELLOW (YELLOW); GLUCOSE 1000 mg/dL (NEGATIVE); KETONE NEGATIVE (NEGATIVE); NITRITE NEGATIVE (NEGATIVE); PROTEIN NEGATIVE (NEGATIVE); UROBILINOGEN NORMAL (NORMAL)
[2019-05-07 12:09] LABS: INR 0.95 (0.85-1.17); PROTIME 12.2 SECONDS (11.6-15.0)
[2019-05-07 12:10] LABS: APTT 28.6 SECONDS (22.8-39.4); CALC OSMOLALITY 280 mosm/kg (275-300); CALCIUM 8.9 mg/dL (8.5-10.1); CARBON DIOXIDE 27.5 mmol/L (21.0-32.0); CHLORIDE - SERUM 100 mmol/L (98-107); CREATININE - SERUM 0.8 mg/dL (0.6-1.3); POTASSIUM - SERUM 3.8 mmol/L (3.5-5.1); SODIUM 137 mmol/L (136-145); UREA NITROGEN 7 mg/dL (7-18); eGFR NON AFRICAN AMERICAN 78 mL/min (90-120)
[2019-05-07 12:11] LABS: GLUCOSE 266 mg/dL (74-106)
[2019-05-12] VITALS (14 sets, daily range): BP systolic 102–125; BP diastolic 56–85; Ht 177.8 cm; Wt 105.5 kg
--- NOTE | 2019-05-12 10:55 | NUR ---
ANESTHESIA AT BEDSIDE REBLOCKING RIGHT POPLITEAL. WILL CONTINUE TO MONITOR.
--- NOTE | 2019-05-12 11:20 | NUR ---
PATIENT ADMITTED TO ROOM 2208. ADMISSION ASSESSMENT COMPLETE. POST OP VITALS STABLE. DRSG TO RIGHT KNEE C/D/I. ICE PACK IN PLACE. WILL CONTINUE TO MONITOR.
--- NOTE | 2019-05-12 12:49 | OP ---
PATIENT NAME: ZAHIDA MILLARD MEDICAL RECORD: [id number] :62 LOCATION:D.MS Ramos2208 ADMISSION DATE:05/12/19 SURGEON: JOSEFINA ACKERMAN MD DATE OF OPERATION: 05/12/2019 PREOPERATIVE DIAGNOSIS: Loose right total knee. POSTOPERATIVE DIAGNOSIS: Loose right total knee. PROCEDURE: Revision total knee arthroplasty -- polyethylene only. SURGEON: Josefina Ackerman MD TANK WORKER: SATISH Samuel INTRAOPERATIVE COMPLICATIONS: None. SUMMARY OF PATHOLOGIC FINDINGS: Upon examination, just as in the operative suite, the patient had obvious instability to varus and valgus as well as anterior and posterior translation. Previous bone scans did not show any of the distal femoral and proximal tibial component loose; however, the patient was having signs of instability. Therefore, she was scheduled for polyethylene revision. OPERATIVE SUMMARY IN DETAIL: After obtaining the appropriate preoperative orthopedic surgery consent as well as anesthetic consultation, evaluation and clearance, the patient was brought to the operating room and placed in the operating table in supine position. After adequate general laryngeal mask airway was administered, tourniquet was placed on the proximal aspect of the right lower extremity. Right lower extremity was then prepped and draped in a routine sterile fashion. At this point, the appropriate preoperative timeout was taken to include the patient, operative site as well as both the appropriate identifiers, medications and allergies agreed upon by all in the operative suite. The leg was elevated and exsanguinated, tourniquet was inflated to 350 mmHg. Routine midline incision was taken down for paramedian arthrotomy. The previously utilized paramedian arthrotomy was reincised. The patella was retracted laterally. With complete exposure of the proximal tibia, the previously placed 11 polyethylene was taken out. A trial [address] and thought to be much more stable after irrigation. The final 13 X3 polyethylene was put into place with good position and placement. Knee was taken through range of motion and found to be much more stable. Knee was irrigated. It was filled then with a gram of vancomycin and a gram of tobramycin. The paramedian arthrotomy was closed with #2 Ethibond by Angelo Adams including a #1 Vicryl, 2-0 Vicryl and skin xavier. Sterile dressings were applied. Tourniquet was deflated. The patient was awakened and taken to recovery room in stable condition. All final needle and sponge counts were correct. TRANSINT:[id number] Voice Confirmation ID: [id number] DOCUMENT ID: [id number] OPERATIVE REPORT [id number] ZAHIDA MILLARD MD, JOSEFINA HURT at 1249 CC: [id number] DICTATION DATE: 05/12/19938 BIODIESEL PRODUCTION TECHNICIAN: 05/12/19 0958 ADM IN [address] [place] [address]
--- NOTE | 2019-05-12 13:30 | NUR ---
POST OP VITALS REMAIN STABLE. OFFERED PATIENT PLEXI BOOTS FOR DVT PRECAUTIONS. REFUSES AT THIS TIME. STATES MAYBE LATER. WILL CONTINUE TO MONITOR.
--- NOTE | 2019-05-12 15:13 | NUR ---
PATIENT SLEEPING. VITALS REMAIN STABLE. WILL CONTINUE TO MONITOR.
--- NOTE | 2019-05-12 19:30 | NUR ---
PT SITTING UP IN BED WITHOUT DISTRESS, ALERT AND ORIENTED. DENIES PAIN AT THIS TIME. IV LEFT HAND INFUSING 1/2NS @ 100. RIGHT KNEE DRESSING CDI. ASSISTED ON AND OFF BEDPAN. DENIES NEEDS, CL IN REACH, WILL CTM
--- NOTE | 2019-05-12 21:00 | NUR ---
REFUSES PLEXI BOOTS AT THIS TIME
--- NOTE | 2019-05-12 21:30 | NUR ---
PT STATES PAIN 6/10 IN KNEE. GAVE PERCOCET ORDERED. CALLED RESP TO ASSIST PT IN CPAP SET UP. DENIES OTHER NEEDS, WILL CTM
[2019-05-13] VITALS: BP 76/48
--- NOTE | 2019-05-13 00:05 | NUR ---
ASSISTED PT ON AND OFF BEDPAIN. PT ABLE TO LIFT BOTTOM UP WITHOUT DIFFICULTY. STATES PAIN IN RIGHT KNEE 03/10. GAVE TORADOL ORDERED. WILL CTM
[2019-05-13 04:00] VITALS: BP 116/69
--- NOTE | 2019-05-13 04:10 | NUR ---
PT STATES PAIN 9/10 IN RIGHT KNEE. GAVE PERCOCET ORDERED. DENIES OTHER NEEDS, CL IN REACH. [place] CTM
--- NOTE | 2019-05-13 06:00 | NUR ---
ASSISTED PT ON AND OFF BEDPAN WITHOUT DIFFICULTY, PT ABLE TO LIFT BOTTOM UP BY SELF. PT OVERFLOWED BEDPAN ONTO LINEN. CHANGED LINEN. PT ABLE TO SIT ON SIDE OF BED WHILE THIS NURSE CHANGED LINEN. ASSISTED PT CHANGING INTO NEW GOWN AND WASHING FACE. DENIES OTHER NEEDS AT THIS TIME. PLEXI BOOTS ON, DENIES OTHER NEEDS. CL IN REACH, WILL CTM
--- NOTE | 2019-05-13 07:45 | NUR ---
ALERT AND ORIENTED. LUNGS CLEAR BILATERALLY IN ALL AVINA. HEART SOUNDS S1 AND S2 HEARD IN ALL AVINA. BOWEL SOUNDS ACTIVE X 4. SKIN INTACT WITHOUT REDNESS. PETER WRAP IN PLACE TO RIGHT KNEE. IV TO LEFT HAND PATENT WITHOUT REDNESS. DENIES PAIN. DENIES NEEDS. BED LOW. FALL PRECAUTIONS IN PLACE. CALL DEGROOT AND PERSONAL ITEMS IN REACH. WILL CONTINUE TO MONITOR.
[2019-05-13 07:51] LABS: HEMATOCRIT 41.2 % (36.0-48.0); HEMOGLOBIN 13.8 g/dL (12-16); MCH 30.6 pg (26.0-34.0); MCHC 33.5 g/dL (31.0-37.0); MCV 91.4 fL (80.0-100.0); MEAN PLATELET VOLUME 10.2 fL (7.4-10.4); RBC 4.51 10x6/uL (4.00-5.40); WBC 17.4 10x3/uL (4.8-10.8)
[2019-05-13 08:48] VITALS: BP 111/61
--- NOTE | 2019-05-13 09:53 | NUR ---
RESTING IN BED. DENIES NEEDS. WILL CONTINUE TO MONITOR.
[2019-05-13 13:47] VITALS: BP 124/69
--- NOTE | 2019-05-13 16:19 | NUR ---
RESTING IN BED. DENIES NEEDS. BED LOW. CALL DEGROOT AND PERSONAL ITEMS IN REACH. WILL CONTINUE TO MONITOR.
[2019-05-13 16:41] VITALS: BP 118/62
--- NOTE | 2019-05-13 19:00 | NUR ---
SUPINE IN BED. A&O X 4. AMBULATES WITH WALKER INDEPENDENTLY. DRESSING TO RIGHT KNEE C/D/I. PAIN 03/10. REPORTS MILD ANXIETY, REQUESTS ATIVAN. DENIES OTHER NEEDS. WILL CONTINUE TO MONITOR.
[2019-05-13 22:24] VITALS: BP 104/58
[2019-05-14 03:48] VITALS: BP 121/79
--- NOTE | 2019-05-14 05:00 | NUR ---
I have reviewed this patient and I concur with the Shift Assessment completed by the Licensed Practical Nurse today this shift.
[2019-05-14 06:49] VITALS: BP 106/73
[2019-05-14 07:20] LABS: HEMATOCRIT 39.9 % (36.0-48.0); HEMOGLOBIN 13.2 g/dL (12-16); MCH 30.4 pg (26.0-34.0); MCHC 33.1 g/dL (31.0-37.0); MCV 91.9 fL (80.0-100.0); MEAN PLATELET VOLUME 10.1 fL (7.4-10.4); RBC 4.34 10x6/uL (4.00-5.40); RDW 14.1 % (11.5-14.5)
[2019-05-14 07:25] LABS: WBC 11.3 10x3/uL (4.8-10.8)
[2019-05-14] MEDS ORDERED: ELIQUIS2.5 MG PO (08:08)
[2019-05-14] MEDS ORDERED: PERCOCET 10-321 EAC1 PO (08:08)
--- NOTE | 2019-05-14 08:50 | NUR ---
PATIENT RECIEVED FROM PREVIOUS SHIFT RESTING IN BED, NO NEEDS VICED, CL IN REACH, PATIENT HOPES TO DISCHARGE TODAY
[2019-05-14 10:17] VITALS: BP 145/79
--- NOTE | 2019-05-14 11:56 | MORECARE ---
CASE MANAGEMENT DISCHARGE SUMMARY PATIENT: ZAHIDA MILLARD UNIT: [id number] ADM DATE: 05/12/19 AGE: 58 : 62 SEX: F ROOM/BED: D.2208 AUTHOR: BASIM KEBEDE PHYSICIAN: REFERRING PHYSICIAN: JOSEFINA ACKERMAN MD DATE OF SERVICE: 05/14/19 Discharge Plan Patient Name: ZAHIDA MILLARD Facility: [facility]:[place] : 1960 Planned Disposition: Home with Home Health Anticipated Discharge Date: Discharge Date: Expected LOS: Initial Reviewer: [email or web address] Initial Review Date: 05/12/2019 Generated: 05/14/19 12:55 pm Comments DCP- Discharge Planning Updated by [email or web address]: Molly Vargas on 05/14/19 10:[address] Patient Name: ZAHIDA MILLARD Admission Status: Elective Accout number: [id number] Admission Date: 05-12-2019 : 1960 Admission Diagnosis: Attending: JOSEFINA ACKERMAN Current LOS: 2 Anticipated DC Date: Planned Disposition: Home with Home Health Primary Insurance: WELL[employer] MEDICARE ADV Discharge Planning Comments: CM met with patient to complete initial dc planning assessment. CM educated patient on the CM role and verbal consent given by patient to complete assessment. Patient lives at home with her family where she is independent with her care. At discharge patient plans to return home and feels this is a safe discharge. CM discussed availability of home health, rehab services, and medical equipment. She would like , [facility] for [employer]. She has a walker and BSC at her home. Patient denied known discharge needs at this time. CM will continue to follow and will assist as needed with dc plans/needs. Application Development Project Manager: Molly Vargas DCPIA - Discharge Planning Initial Assessment Updated by [email or web address]: Molly Vargas on 05/14/19 11:49 am * Is the patient Alert and Oriented? Yes * How many steps to enter\exit or inside your home? * PCP MONICA * Pharmacy BILL'S * Preadmission Environment Home with Family * ADLs Independent * Equipment Bedside Commode Rolling Walker * List name and contact numbers for known caregivers / representatives who currently or will assist patient after discharge: BRIAN VILLASENOR [phone] * Verbal permission to speak to the caregivers and representatives has been obtained from the patient. N/A * Community resources currently utilized None * Additional services required to return to the preadmission environment? Yes * Can the patient safely return to the preadmission environment? Yes * Has this patient been hospitalized within the prior 30 days at any hospital? No Coverage Notice Reviewer: [email or web address] Neo Vargas Notice Issued Date-Time: 05/14/2019 11:40 Notice Type: Patient Choice Letter Notice Delivered To: Patient Relationship to Patient: Fireproof Door Maker Name: Delivery Method: HAND - Hand Delivered Flavia Days: Prior Verbal Notification: Recipient Understood Notice: Yes Recipient Signature: Yes Med Rec Note Co-signed by Attending: Coverage Notice Comment: [facility] for [employer] [facility] Patient Name: ZAHIDA MILLARD Page [id number] at 1156 All edits/amendments must be made on the electronic document DICTATION DATE: 05/14/19 115 PIGMENT AND LACQUER MIXER: LANI 05/14/19 1155 RPT#: [id number] DC DATE: STATUS: ADM IN [facility] [address] [place] [address] END OF REPORT
--- NOTE | 2019-05-14 12:13 | MORECARE ---
CASE MANAGEMENT DISCHARGE SUMMARY PATIENT: ZAHIDA MILLARD UNIT: [id number] ADM DATE: 05/12/19 AGE: 58 : 62 SEX: F ROOM/BED: D.2208 AUTHOR: BASIM KEBEDE PHYSICIAN: REFERRING PHYSICIAN: JOSEFINA ACKERMAN MD DATE OF SERVICE: 05/14/19 Discharge Plan Patient Name: ZAHIDA MILLARD Facility: [facility]:[place] : 1960 Planned Disposition: Home with Home Health Anticipated Discharge Date: Discharge Date: Expected LOS: Initial Reviewer: [email or web address] Initial Review Date: 05/12/2019 Generated: 05/14/19 1:12 pm Comments DCP- Discharge Planning Updated by [id number]: Molly Vargas on 05/14/19 10:[address] Patient Name: ZAHIDA MILLARD Admission Status: Elective Accout number: [id number] Admission Date: 05-12-2019 : 1960 Admission Diagnosis: Attending: JOSEFINA ACKERMAN Current LOS: 2 Anticipated DC Date: Planned Disposition: Home with Home Health Primary Insurance: WELL[employer] MEDICARE ADV Discharge Planning Comments: CM met with patient to complete initial dc planning assessment. CM educated patient on the CM role and verbal consent given by patient to complete assessment. Patient lives at home with her family where she is independent with her care. At discharge patient plans to return home and feels this is a safe discharge. CM discussed availability of home health, rehab services, and medical equipment. She would like , [facility] for [employer]. She has a walker and BSC at her home. Patient denied known discharge needs at this time. CM will continue to follow and will assist as needed with dc plans/needs. Riprap Worker: Molly Vargas DCPIA - Discharge Planning Initial Assessment Updated by [email or web address]: Molly Vargas on 05/14/19 11:49 am * Is the patient Alert and Oriented? Yes * How many steps to enter\exit or inside your home? * PCP MONICA * Pharmacy BILL'S * Preadmission Environment Home with Family * ADLs Independent * Equipment Bedside Commode Rolling Walker * List name and contact numbers for known caregivers / representatives who currently or will assist patient after discharge: BRIAN VILLASENOR [phone] * Verbal permission to speak to the caregivers and representatives has been obtained from the patient. N/A * Community resources currently utilized None * Additional services required to return to the preadmission environment? Yes * Can the patient safely return to the preadmission environment? Yes * Has this patient been hospitalized within the prior 30 days at any hospital? No External Providers External [facility] Next Contact Date: Service Request Date: Service Type: Resolution: Reviewer: Comments: Coverage Notice Reviewer: [email or web address] Neo Vargas Notice Issued Date-Time: 05/14/2019 11:40 Notice Type: Patient Choice Letter Notice Delivered To: Patient Relationship to Patient: Atomic Physics Professor Name: Delivery Method: HAND - Hand Delivered Flavia Days: Prior Verbal Notification: Recipient Understood Notice: Yes Recipient Signature: Yes Med Rec Note Co-signed by Attending: Coverage Notice Comment: julia for [employer] Last DP export: 05/14/19 10:56 a Patient Name: ZAHIDA MILLARD Page [phone] at 1213 All edits/amendments must be made on the electronic document DICTATION DATE: 05/14/19 1212 PROCESS ENVIRONMENTAL TECHNICIAN: LANI 05/14/19 1212 RPT#: [id number] DC DATE: STATUS: ADM IN [address] [place] [address] END OF REPORT
--- NOTE | 2019-05-14 12:13 | NUR ---
IV REMOVED WITH NO REDNESS OR EDEMA AT SITE. DISCHARGE INSTRUCTIONS GIVEN WITH PATIENT VOICED UNDERSTANDING. PATIENT TAKEN BY WHEELCHAIR TO PRIVATE CAR
== END 2019-05-14 13:08 | disposition home health service (06) | DRG 489 ==
LOC: D.SDCHOLD 05-07 10:00 → D.MS 05-12 06:30 → D.SDCHOLD 05-12 08:45 → D.MS 05-12 10:59 → D.SDCHOLD 05-12 11:00 → D.MS 05-14 13:08
PROVIDERS: ADMIT Orthopaedic Surgery; ATTEND Orthopaedic Surgery
PROC: 0SUV09Z Supplement Right Knee Joint, Tibial Surface with Liner, Open Approach (ICD-10-PCS; 2019-05-12)
PROC: 0SPC09Z Removal of Liner from Right Knee Joint, Open Approach (ICD-10-PCS; principal; 2019-05-12 08:45)
DX: T84.032A Mechanical loosening of internal right knee prosthetic joint, initial encounter (principal); I10 Essential (primary) hypertension

== ENCOUNTER 2019-05-06 08:00 | Outpatient (CLI) | payer MEDICARE, MEDICAID ==
[2018-07-22 16:29] VITALS: BMI 35.3
[~2019-05-06 08:00] MED LIST changes: -SYNTHROID100 MCG PO; +SYNTHROID75 MCG PO
[2019-05-06] MEDS ORDERED: SINGULAIR10 MG (14:44)
[2019-05-07] MEDS ORDERED: TYLENOL W/CODEI1 TAB PO (11:01)
== END 2019-05-06 23:59 | disposition home or self-care (01) ==
LOC: D.MAMMO 08:00
PROVIDERS: ATTEND Family Medicine
DX: R92.8 Other abnormal and inconclusive findings on diagnostic imaging of breast (principal)

== ENCOUNTER → 2019-06-24 16:40 | Outpatient (CLI) | payer MEDICARE, MEDICAID ==
[2019-05-12 11:44] VITALS: BMI 33.3
[~2019-06-24 16:40] MED LIST changes: +PERCOCET 10-321 EAC1 PO; +SINGULAIR10 MG; +SYNTHROID100 MCG PO; -SYNTHROID75 MCG PO
== END | disposition home or self-care (01) ==
LOC: D.LABREF 16:40
PROVIDERS: ATTEND Orthopaedic Surgery
DX: M25.561 Pain in right knee (principal)

== ENCOUNTER → 2020-02-24 10:20 | Outpatient (CLI) | payer MEDICARE, MEDICAID ==
[2019-11-11 13:00] VITALS: BMI 33.0
[~2020-02-24 10:20] MED LIST changes: +ANORO ELLIPTA1 EACH INH; +CALCIUM 600 +1 EAC3 PO; -GABAPENTIN100 MG PO; +HYDROCODON-ACE1 EA10 PO; +NEURONTIN 300300 MG PO; +NORVASC5 MG PO; +REQUIP5 MG PO; +VASCEPA1 GM PO
== END | disposition home or self-care (01) ==
LOC: D.MRI 10:20
PROVIDERS: ATTEND Orthopaedic Surgery
DX: M48.54XA Collapsed vertebra, not elsewhere classified, thoracic region, initial encounter for fracture (principal)

== ENCOUNTER → 2020-05-24 08:50 | Outpatient (CLI) | payer MEDICARE, MEDICAID ==
[2019-11-11 13:00] VITALS: BMI 33.0
== END | disposition home or self-care (01) ==
LOC: D.LAB 08:50 → D.RAD 09:45 → D.RT 10:00
PROVIDERS: ATTEND Internal Medicine Pulmonary Disease
DX: J44.9 Chronic obstructive pulmonary disease, unspecified (principal); R94.2 Abnormal results of pulmonary function studies

== ENCOUNTER 2020-06-09 13:00 | Outpatient (CLI) | payer MEDICARE, MEDICAID ==
[2019-11-11 13:00] VITALS: BMI 33.0
== END 2020-06-09 23:59 | disposition home or self-care (01) ==
LOC: D.MAMMO 13:00
PROVIDERS: ATTEND Family Medicine
DX: Z12.31 Encounter for screening mammogram for malignant neoplasm of breast (principal)

== ENCOUNTER 2021-02-11 07:40 | Day surgery (SDC) | payer MEDICARE, MEDICAID ==
[2019-11-11 13:00] VITALS: BMI 33.0
[~2021-02-11 07:40] MED LIST changes: +BUTALB-ACETAMI1 EAC4; +FISH OIL 1,0001 CA1; +MOBIC7.5 MG; -NEURONTIN 300300 MG PO; -REQUIP5 MG PO; +TRELEGY ELLIPT1 EACH
[2021-02-11 08:27] LABS: BASOPHILS 0.5 % (0-2); EOSINOPHILS 2.8 % (0-7); HEMATOCRIT 45.5 % (36.0-48.0); HEMOGLOBIN 16.2 g/dL (12-16); IMMATURE GRANULOCYTES 0.1 % (0-5); LYMPHOCYTE ABS# 3.31 10x3/uL (1.18-3.74); LYMPHOCYTES 38.1 % (15-50); MCH 29.7 pg (26.0-34.0); MCHC 35.6 g/dL (31.0-37.0); MCV 83.5 fL (80.0-100.0); MEAN PLATELET VOLUME 11.9 fL (7.4-10.4); MONOCYTES 7.2 % (2-11); NEUTROPHIL ABS# 4.46 10x3/uL (1.56-6.13); NEUTROPHILS 51.3 % (40-80); RBC 5.45 10x6/uL (4.00-5.40); RDW 12.5 % (11.5-14.5); WBC 8.7 10x3/uL (4.8-10.8)
[2021-02-11 08:36] LABS: PLATELET COUNT 368 10x3/uL (130-400)
[2021-02-11 08:59] LABS: ANION GAP 24.4 mmol/L (8-16); CALCIUM 10.8 mg/dL (8.5-10.1); CARBON DIOXIDE 21.8 mmol/L (21.0-32.0); CREATININE - SERUM 1.2 mg/dL (0.6-1.3); POTASSIUM - SERUM 3.2 mmol/L (3.5-5.1)
--- NOTE | 2021-02-11 09:29 | NUR ---
FSBS 479, DR. MIX NOTIFIED. SURGERY CANCELLED. APPT SET FOR 11:[address] MILES BAUER. 10 UNITS SC REGULAR INSULIN ORDERED.
== END 2021-02-11 09:53 | disposition home or self-care (01) ==
LOC: D.OPS 07:40
PROVIDERS: Anesthesiology; ATTEND Orthopaedic Surgery
DX: M75.122 Complete rotator cuff tear or rupture of left shoulder, not specified as traumatic (principal); Z53.8 Procedure and treatment not carried out for other reasons

== ENCOUNTER 2021-02-12 11:27 | Observation (INO) | payer MEDICARE, MEDICAID ==
[~2021-02-12] VITALS: Ht 177.8 cm; Wt 87.3 kg
[~2021-02-12 11:27] MED LIST changes: +NEURONTIN 300300 MG PO; +REQUIP5 MG PO
[2021-02-12 11:52] VITALS: BP 105/80; Ht 177.8 cm; Wt 87.3 kg
--- NOTE | 2021-02-12 12:00 | NUR ---
BS 454
[2021-02-12 12:24] LABS: BASOPHILS 0.4 % (0-2); EOSINOPHILS 2.4 % (0-7); HEMATOCRIT 41.8 % (36.0-48.0); HEMOGLOBIN 15.1 g/dL (12-16); IMMATURE GRANULOCYTES 0.1 % (0-5); LYMPHOCYTE ABS# 4.04 10x3/uL (1.18-3.74); LYMPHOCYTES 38.5 % (15-50); MCH 30.4 pg (26.0-34.0); MCHC 36.1 g/dL (31.0-37.0); MCV 84.1 fL (80.0-100.0); MEAN PLATELET VOLUME 11.4 fL (7.4-10.4); NEUTROPHIL ABS# 5.41 10x3/uL (1.56-6.13); NEUTROPHILS 51.6 % (40-80); PLATELET COUNT 325 10x3/uL (130-400); RBC 4.97 10x6/uL (4.00-5.40); RDW 12.5 % (11.5-14.5); WBC 10.5 10x3/uL (4.8-10.8)
[2021-02-12 13:03] LABS: ALBUMIN 3.1 g/dL (3.4-5.0); ANION GAP 21.3 mmol/L (8-16); BILIRUBIN - TOTAL 0.38 mg/dL (0.2-1.3); CALCIUM 9.8 mg/dL (8.5-10.1); CARBON DIOXIDE 21.2 mmol/L (21.0-32.0); MAGNESIUM - SERUM 1.8 mg/dL (1.8-2.4); POTASSIUM - SERUM 3.5 mmol/L (3.5-5.1); PROTEIN - SERUM 7.3 g/dL (6.4-8.2)
--- NOTE | 2021-02-12 13:55 | NUR ---
REPEAT BLOOD GLUCOSE OF 354.
--- NOTE | 2021-02-12 14:44 | NUR ---
BLOOD SUGAR RETESTED AT 306 PATIENT AMA'ED AT THIS TIME. FORM SIGNED. PATIENT STATES SHE JUST CANNOT STAY OVER NIGHT
== END 2021-02-12 14:49 | disposition left against medical advice (07) ==
LOC: D.ER 11:27 → D.M2 12:36 → OBSVTIME 12:36 → D.M2 14:49
PROVIDERS: Family Medicine; ADMIT Emergency Medicine; ATTEND Emergency Medicine
DX: E11.65 Type 2 diabetes mellitus with hyperglycemia (principal); E03.9 Hypothyroidism, unspecified; I10 Essential (primary) hypertension; J45.909 Unspecified asthma, uncomplicated; F32.9 Major depressive disorder, single episode, unspecified; F41.9 Anxiety disorder, unspecified; E87.1 Hypo-osmolality and hyponatremia

== ENCOUNTER 2021-02-16 10:13 | Observation (INO) | payer MEDICARE, MEDICAID ==
[~2021-02-16] VITALS: Ht 177.8 cm; Wt 87.1 kg
[~2021-02-16 10:13] MED LIST changes: -BUTALB-ACETAMI1 EAC4; +BUTALB-ACETAMI1 EAC4 PO; -FISH OIL 1,0001 CA1; +FISH OIL 1,0001 CA1 PO; -MOBIC7.5 MG; +MOBIC7.5 MG PO; -NEURONTIN 300300 MG PO; -REQUIP5 MG PO; -TRELEGY ELLIPT1 EACH; +TRELEGY ELLIPT1 EACH INH
[2021-02-16 11:16] LABS: BASOPHILS 1.1 % (0-2); EOSINOPHILS 1.6 % (0-7); HEMATOCRIT 49.3 % (36.0-48.0); HEMOGLOBIN 16.4 g/dL (12-16); LYMPHOCYTES 32.4 % (15-50); MCH 29.1 pg (26.0-34.0); MCHC 33.2 g/dL (31.0-37.0); MCV 87.4 fL (80.0-100.0); MEAN PLATELET VOLUME 9.3 fL (7.4-10.4); MONOCYTES 8.4 % (2-11); NEUTROPHILS 56.5 % (40-80); PLATELET COUNT 354 10x3/uL (130-400); RBC 5.64 10x6/uL (4.00-5.40); RDW 13.4 % (11.5-14.5); WBC 12.6 10x3/uL (4.8-10.8)
[2021-02-16 11:24] LABS: CALC OSMOLALITY 280 mosm/kg (275-300); CARBON DIOXIDE 23.1 mmol/L (21.0-32.0); CHLORIDE - SERUM 93 mmol/L (98-107); GLUCOSE 363 mg/dL (74-106); POTASSIUM - SERUM 4.5 mmol/L (3.5-5.1); SODIUM 132 mmol/L (136-145); UREA NITROGEN 14 mg/dL (7-18); eGFR NON AFRICAN AMERICAN 60 mL/min (90-120)
[2021-02-16 11:41] LABS: ALBUMIN 3.2 g/dL (3.4-5.0); ALKALINE PHOSPHATASE 205 U/L (30-120); ALT (SGPT) 40 U/L (10-68); BILIRUBIN - TOTAL 0.23 mg/dL (0.2-1.3); CKMB 1.5 U/L (0.0-3.6); CREATINE KINASE 94 UL (21-215); MAGNESIUM - SERUM 1.8 mg/dL (1.8-2.4); PROTEIN - SERUM 7.6 g/dL (6.4-8.2); TROPONIN-I < 0.017 ng/mL (0.000-0.060)
[2021-02-16 11:47] LABS: APTT 23.8 SECONDS (22.8-39.4); INR 1.12 (0.85-1.17); PROTIME 13.3 SECONDS (11.6-15.0)
--- NOTE | 2021-02-16 12:31 | NUR ---
PATIENT AMBULATED TO BR OFF O2. NO SOB OR TACHYCARDIA. SPO2 97% ON ROOM AIR. O2 LEFT OFF.
[2021-02-16] MEDS ORDERED: NEURONTIN 300300 MG PO (13:31)
[2021-02-16] MEDS ORDERED: REQUIP5 MG PO (13:32)
[2021-02-16 13:39] VITALS: BMI 27.6
[2021-02-16 13:45] VITALS: BP 92/60
[2021-02-16 15:16] LABS: MAGNESIUM - SERUM 1.7 mg/dL (1.8-2.4); THYROID STIMULATING HORMONE 1.26 uIU/mL (0.36-3.74)
[2021-02-16 17:17] LABS: BILIRUBIN NEGATIVE (NEGATIVE); KETONE MODERATE mg/dL (NEGATIVE); NITRITE NEGATIVE (NEGATIVE); UROBILINOGEN NORMAL mg/dL (< 2)
[2021-02-16 17:20] LABS: CKMB 1.7 U/L (0.0-3.6); CREATINE KINASE 68 UL (21-215)
[2021-02-16 17:22] LABS: TROPONIN-I < 0.017 ng/mL (0.000-0.060)
[2021-02-16 17:45] LABS: UDS - AMPHET NEGATIVE QUAL (NEGATIVE); UDS - BARB POSITIVE QUAL (NEGATIVE); UDS - BENZO NEGATIVE QUAL (NEGATIVE); UDS - COCAINE NEGATIVE QUAL (NEGATIVE); UDS - OPIATE NEGATIVE QUAL (NEGATIVE); UDS - PCP NEGATIVE QUAL (NEGATIVE); UDS - THC POSITIVE QUAL (NEGATIVE)
[2021-02-16 21:00] VITALS: BP 116/53
[2021-02-16 23:34] LABS: CKMB 1.7 U/L (0.0-3.6); CREATINE KINASE 66 UL (21-215)
[2021-02-16 23:35] LABS: TROPONIN-I < 0.017 ng/mL (0.000-0.060)
[2021-02-17] VITALS: BP 98/59
[2021-02-17 04:00] VITALS: BP 107/75
--- NOTE | 2021-02-17 04:08 | NUR ---
I have reviewed this patient and I concur with the Shift Assessment completed by the Licensed Practical Nurse today this shift.
[2021-02-17 06:30] LABS: BASOPHILS 0.5 % (0-2); EOSINOPHILS 4.2 % (0-7); HEMATOCRIT 41.3 % (36.0-48.0); HEMOGLOBIN 14.2 g/dL (12-16); LYMPHOCYTES 34.2 % (15-50); MCH 29.7 pg (26.0-34.0); MCHC 34.3 g/dL (31.0-37.0); MCV 86.4 fL (80.0-100.0); MONOCYTES 10.4 % (2-11); NEUTROPHILS 50.7 % (40-80); PLATELET COUNT 294 10x3/uL (130-400); RBC 4.79 10x6/uL (4.00-5.40)
[2021-02-17 06:36] LABS: WBC 7.6 10x3/uL (4.8-10.8)
[2021-02-17 06:37] LABS: ALBUMIN 2.8 g/dL (3.4-5.0); ALKALINE PHOSPHATASE 158 U/L (30-120); ALT (SGPT) 29 U/L (10-68); BILIRUBIN - TOTAL 0.19 mg/dL (0.2-1.3); CALC OSMOLALITY 292 mosm/kg (275-300); CALCIUM 9.1 mg/dL (8.5-10.1); CARBON DIOXIDE 28.2 mmol/L (21.0-32.0); CHLORIDE - SERUM 103 mmol/L (98-107); CKMB 1.3 U/L (0.0-3.6); CREATINE KINASE 58 UL (21-215); CREATININE - SERUM 0.7 mg/dL (0.6-1.3); GLUCOSE 292 mg/dL (74-106); POTASSIUM - SERUM 3.5 mmol/L (3.5-5.1); PROTEIN - SERUM 6.2 g/dL (6.4-8.2); SODIUM 142 mmol/L (136-145); TROPONIN-I < 0.017 ng/mL (0.000-0.060); UREA NITROGEN 9 mg/dL (7-18); eGFR NON AFRICAN AMERICAN > 90 mL/min (90-120)
--- NOTE | 2021-02-17 07:00 | NUR ---
REPORT RECEIVED. PATIENT IS AAOX4, LYING IN BED. NO S/S OF DISTRESS OBSERVED, RR EVEN AND UNLABORED ROOM AIR. PIV TO LT AC, PATENT, INFUSING NS @ 75 AND CARDIZEM @ 5ML/HR. PATIENT DENIES NEEDS AT THIS TIME. CL IN REACH, BED LOCKED AND LOWERED. WILL CPOC.
--- NOTE | 2021-02-17 08:30 | NUR ---
PATIENT PIV TO LT AC ACCIDENTAL DC WITH CATH TIP INTACT. NEW 20G PIV INSERTED TO LT FA, X1 ATTEMPT. BLOOD RETURN NOTED AND FLUSED WITH EAST. PATIENT TOLERATED WELL. FLUIDS RECONNECTED PER ORDERS. WILL CPOC.
[2021-02-17 08:40] VITALS: BP 121/78
[2021-02-17 11:40] VITALS: BP 104/69
[2021-02-17 16:03] VITALS: BP 134/78
[2021-02-17 23:18] VITALS: BP 99/64
[2021-02-18 05:18] VITALS: BP 141/87
[2021-02-18 07:15] VITALS: BP 94/69
--- NOTE | 2021-02-18 07:15 | NUR ---
RECEIVE SHIFT REPORT. RESTING IN BED. AROUSES TO VOICE. DENIES ANY NEEDS AT THIS TIME. WILL CONTINUE POC AND SAFETY PRECAUTIONS.
[2021-02-18 12:10] VITALS: BP 131/92
[2021-02-18] MEDS ORDERED: GLUCOPHAGE500 MG PO (12:30)
[2021-02-18] MEDS ORDERED: CARDIZEM60 MG PO (12:30)
--- NOTE | 2021-02-18 13:45 | NUR ---
D/C LEFT FOREARM IV, TIP INTACT. DISCHARGE INSTRUCTIONS GIVEN VERBALLY AND HANDOUTS PROVIDED. HARD SCRIPT FOR INSULIN SUPPLIES GIVEN. TAKEN DOWN TO ED ENTRANCE VIA WHEELCHAIR. REMAINS FREE FROM INJURY WHILE IN CARE.
[2021-02-18 13:47] VITALS: Ht 177.8 cm; Wt 87.1 kg
--- NOTE | 2021-02-20 18:53 | MORECARE ---
CASE MANAGEMENT DISCHARGE SUMMARY PATIENT: ZAHIDA MILLARD UNIT: [id number] ADM DATE: 02/16/21 AGE: 60 : 62 SEX: F ROOM/BED: [facility]7 AUTHOR: YANDY,DOC PHYSICIAN: REFERRING PHYSICIAN: AKHIL SWANSON MD DATE OF SERVICE: 02/20/21 Case Management Discharge Planning Summary DCP REVIEW SUMMARY ANTICIPATED D/C DATE: EXPECTED LOS : CASE STATUS: DCP Complete INITIAL REVIEW: 02/16/2021 INITIAL REVIEWER: Norma Tinoco FINAL DISCHARGE DISPOSITION: : FINAL REVIEWER: FINAL REVIEW DATE: DCP Focus Questions & Answers QUESTION: ANSWER : PATIENT: ZAHIDA MILLARD ENCOUNTER: [id number] MEDICAL RECORD#: [id number] ADMISSION DATE: 02/16/2021 DISCHARGE DATE: 02/18/2021 ATTENDING MD: AKHIL VICENTE : AGE: 60 MARITAL STATUS: D DC PLAN ID: [id number] FACILITY: [facility] PRINTED ON: 02/20/21 18:52 CT All edits/amendments must be made on the electronic document DICTATION DATE: 02/20/211851 LINE WALKER: LANI 02/20/211851 RPT#: [id number] DC DATE:02/18/21 STATUS: DIS IN [facility] [address] [place] [address] END OF REPORT
--- NOTE | 2021-02-21 09:26 | EC ---
PATIENT:ZAHIDA MILLARD DATE OF SERVICE: 02/16/21 SEX: F MEDICAL RECORD: [id number] DATE OF : 62 LOCATION:D. D.212 AGE OF PATIENT: 60 ADMISSION DATE: 02/16/21 REFERRING PHYSICIAN: INTERPRETING PHYSICIAN: MAYTE CHRISTIE MD ECHOCARDIOGRAM REPORT ECHO CHARGES 4 ECHO COMPLETE Date: 02/17/21 CLINICAL DIAGNOSIS: AFLUTTER ECHOCARDIOGRAPHIC MEASUREMENTS (adult normal given) AC root (d.<3.7cm) 3.1 cm LV Septum d (<1.2 cm> 0.7 cm Valve Excursion 1.5 cm LV Septum (systole) 1.0 cm Left Atria (s.<4.0cm> 3.5 cm LVPW d(<1.2cm) 1.1 cm RV (d.<2.3cm) 2.7 cm LVPW (sytole) 1.3 cm LV diastole(<5.6CM) 5.3 cm MV E-F(>70mm/sec) cm LV systole 3.9 cm LVOT Diameter 1.6 cm MV exc.(>10mm) 0.8 cm Est.ejection fraction (50-75%) % DOPPLER: LVIT cm/sec A 94 cm/sec E 84 cm/sec LA cm/sec RVSP 21 mmHg LVOT 113 cm/sec AOP1/2T m/s Asc. Ao 203 cm/sec RVOT 66 cm/sec RA cm/sec PA 117 cm/sec AV Gradient Peak 16.6 mmHg AV Mean 8.9 mmHg AV Area 1.3 cm MV Gradient Peak 4.1 mmHg MV Mean 2.2 mmHg MV Area cm COMMENTS: Lamp Cleaner: Claudia OROSCO Tile Setter Supervisor: 2 Dr. Willingham TAPE# Pericardial Effusion N DATE OF SERVICE: Adequate 2D, color-flow imaging, spectral Doppler, and M-Mode FINDINGS: No LVH. LV internal dimension is normal. Wall motion is normal. EF is greater than or equal to 55%. Aortic valve is tricuspid. No evidence of stenosis by Doppler interrogation. Left atrium is normal. Mitral valve shows no prolapse. Trace MR. Right side is grossly normal. Trace TR. TRANSINT:[id number] Voice Confirmation ID: [id number] DOCUMENT ID: [id number] ECHOCARDIOGRAM REPORT [id number] ZAHIDA MILLARD MAYTE CHRISTIE MD at 0926 CC: [id number] DICTATION DATE: 02/18/21 1129 ETHYLBENZENE CONVERTER OPERATOR: 02/18/21 1214 DIS IN 02/18/21 [facility] [address] [place] [address]
== END 2021-02-18 13:47 | disposition home or self-care (01) ==
LOC: D.ER 10:13 → D.M2 11:39 → OBSVTIME 11:39 → D.M2 11:39
PROVIDERS: Family Medicine; ADMIT Family Medicine Adult Medicine; ATTEND Family Medicine Adult Medicine
DX: I47.1 Supraventricular tachycardia (principal); I10 Essential (primary) hypertension; K21.9 Gastro-esophageal reflux disease without esophagitis; J44.9 Chronic obstructive pulmonary disease, unspecified; E11.65 Type 2 diabetes mellitus with hyperglycemia; E87.1 Hypo-osmolality and hyponatremia; D75.1 Secondary polycythemia; F32.9 Major depressive disorder, single episode, unspecified; F41.9 Anxiety disorder, unspecified